=== PATIENT | female | born 1945 | race African-American/Black ===

== ENCOUNTER → 2023-12-19 07:51 | Outpatient (REF) | payer MEDICARE, OTHER, SELFPAY | LOC: HWRAD 07:51 | PROVIDERS: ATTENDING PHYSICIAN Nurse Practitioner Primary Care | DX: M54.50 Low back pain, unspecified (principal); J22 Unspecified acute lower respiratory infection | CPT/HCPCS: 71046; 72110 ==

== ENCOUNTER → 2024-01-22 09:33 | Outpatient (REF) | payer MEDICARE, OTHER, SELFPAY | LOC: MRI 3T 09:33 | PROVIDERS: ATTENDING PHYSICIAN Nurse Practitioner Primary Care | DX: M47.816 Spondylosis without myelopathy or radiculopathy, lumbar region (principal); M54.50 Low back pain, unspecified; M81.0 Age-related osteoporosis without current pathological fracture; M51.360 Other intervertebral disc degeneration, lumbar region with discogenic back pain only | CPT/HCPCS: 77080 ==

== ENCOUNTER → 2024-01-24 08:44 | Outpatient (REF) | payer MEDICARE, OTHER, SELFPAY | LOC: PAVMRI 08:44 | PROVIDERS: ATTENDING PHYSICIAN Nurse Practitioner Primary Care | DX: M54.50 Low back pain, unspecified (principal); M51.360 Other intervertebral disc degeneration, lumbar region with discogenic back pain only; M47.816 Spondylosis without myelopathy or radiculopathy, lumbar region | CPT/HCPCS: 72148 ==

== ENCOUNTER → 2024-02-06 07:50 | Outpatient (REF) | payer MEDICARE, OTHER, SELFPAY | LOC: WDC 07:50 | PROVIDERS: ATTENDING PHYSICIAN Nurse Practitioner Primary Care | DX: Z12.31 Encounter for screening mammogram for malignant neoplasm of breast (principal) | CPT/HCPCS: 77063; 77067 ==

== ENCOUNTER → 2024-04-19 07:20 | Outpatient (REF) | payer MEDICARE, OTHER, SELFPAY | LOC: MRI 07:20 | PROVIDERS: ATTENDING PHYSICIAN Orthopaedic Surgery; FAMILY PHYSICIAN Nurse Practitioner Primary Care | DX: M25.511 Pain in right shoulder (principal) | CPT/HCPCS: 73221 ==

== ENCOUNTER → 2024-08-23 08:19 | Outpatient (REF) | payer MEDICARE, OTHER, SELFPAY | LOC: HWRCS 08:19 | PROVIDERS: ATTENDING PHYSICIAN Nurse Practitioner Primary Care | DX: E11.9 Type 2 diabetes mellitus without complications (principal); R60.0 Localized edema | CPT/HCPCS: 93306 ==

== ENCOUNTER → 2024-10-01 06:37 | Outpatient (REF) | payer MEDICARE, OTHER, SELFPAY ==
[2024-10-01] MEDS: LEXISCAN 0.4 MG IV (08:49)
[2024-10-01] MEDS: AMINOPHYLLINE 75 MG IV (08:52)
== END ==
LOC: RCS 06:37
PROVIDERS: ATTENDING PHYSICIAN Nurse Practitioner Primary Care
DX: E11.9 Type 2 diabetes mellitus without complications (principal); R07.89 Other chest pain
CPT/HCPCS: 78452; 93017; A9500; J2785

== ENCOUNTER → 2024-12-22 06:44 | Outpatient (REF) | payer MEDICARE, OTHER, SELFPAY | LOC: MRI 3T 06:44 | PROVIDERS: ATTENDING PHYSICIAN Specialist; FAMILY PHYSICIAN Nurse Practitioner Primary Care | DX: R26.81 Unsteadiness on feet (principal) | CPT/HCPCS: 70551 ==

== ENCOUNTER 2024-12-27 09:00 | Emergency (ER) | payer MEDICARE, BC, SELFPAY ==
[2024-12-27] VITALS (8 sets, daily range): BP systolic 117–151; BP diastolic 67–88; BMI 33.1
--- NOTE | 2024-12-27 09:16 | ED.GENMED ---
History of Present Illness
<Terence Mancini PA-C - Last Filed: 12/27/24 15:46>
General
Chief Complaint: Chest Pain
Source: patient
Exam Limitations: none
Time Seen by Provider: 12/27/24 09:15
History of Present Illness
History of Present Illness:
79-year-old female with history of hyperlipidemia, hypertension and prediabetes on atorvastatin losartan and metformin presents complaining of intermittent chest comfort upper chest since yesterday. This morning her pain was severe and she
described as a pressure on her chest. She notes at the time my exam the pain is improved. She denies any recent travel or surgery but no leg swelling or calf pain. The pain is not pleuritic. She does occasionally note swelling in her leg that
tends to improve with elevation. No fevers. The daughter that presents with her states she has been coughing slightly. She has seen cardiology in this area she has had an echocardiogram in the recent past.
Past History
<Terence Mancini PA-C - Last Filed: 12/27/24 15:46>
Past History
ED Past Medical History: Cancer, HTN, Hypercholesterolemia, NIDDM and Hypothyroidism
ED Past Surgical History: Orthopedic and Other
Social History
Tobacco: Non-smoker
Alcohol: None
Drug: None
Living: with family
Phy Exam
<LAWRENCE Brice Last Filed: 12/27/24 15:46>
Physical Exam
Physical Exam:
General: Well-developed female with slight increased work of breathing
HEENT normocephalic atraumatic
Heart: Regular rate and rhythm
Lungs: Clear
Abdomen is soft nontender
Extremities: Mild pitting edema bilateral lower extremities
Scores
<Terence Mancini PA-C - Last Filed: 12/27/24 15:46>
Heart Score for Chest Pain Patients
STEMI patient?: No
History: Slightly or Non-Suspicious
ECG: Normal
Age: >/= 65 years
Risk Factors: 1 or 2 Risk Factors
Troponin: </= Normal Limit
Heart Score for Chest Pain Patients: 3
Heart Score Risk: 2.5% MACE over next 6 weeks
Course
Darriuslt;Terence Mancini PA-C - Last Filed: 12/27/24 15:46>
Orders/Labs/Results
Orders:
Orders
12/27/24 09:01
EKG [Electrocardiogram (*1)] Urgent
Reason for Study: Chest Pain
EKG- Treatment ONCE
12/27/24 09:32
CR Chest - 2 Views Urgent
Comment:
Reason For Exam: sob
12/27/24 10:01
US Abdomen Complete/Upper Urgent
Comment:
Reason For Exam: epigastric pain
12/27/24 10:02
Add On- LAB Urgent
Tests Added?: lipase
12/27/24 11:13
Complete Blood Count/With Diff Urgent
Comprehensive Metabolic Panel Urgent
Lipase Urgent
Magnesium Urgent
NT-proBNP Urgent
Troponin I Urgent
12/27/24 14:01
Electrocardiogram (*1) Urgent
Reason for Study: Chest Pain
EKG- Treatment ONCE
12/27/24 14:07
Troponin I Urgent
Abnormal Lab Results
12/27/24
11:13
Hct 36.7 L %
(37.0-47.0)
BUN 18 H mg/dl
(7-17)
Creatinine 0.5 L mg/dL
(0.6-1.0)
Glucose 110 H mg/dl
(70-99)
ALT 59 H U/L
(0-35)
12/27/24 11:13
12/27/24 11:13
Vital Signs
Initial and Last Documented VS:
Initial Vital Signs
Temp Pulse Resp BP Pulse Ox
98.5 F 75 18 127/88 99
12/27/24 09:12 12/27/24 09:12 12/27/24 09:12 12/27/24 09:12 12/27/24 09:12
Last Documented Vital Signs
Temp Pulse Resp BP Pulse Ox
98.5 F 70 22 139/76 98
12/27/24 09:12 12/27/24 14:15 12/27/24 14:15 12/27/24 15:00 12/27/24 15:30
<Eddie Arias MD - Last Filed: 12/27/24 10:02>
Orders/Labs/Results
Orders:
Orders
12/27/24 09:01
EKG [Electrocardiogram (*1)] Urgent
Reason for Study: Chest Pain
EKG- Treatment ONCE
12/27/24 09:32
CR Chest - 2 Views Urgent
Comment:
Reason For Exam: sob
12/27/24 10:01
US Abdomen Complete/Upper Urgent
Comment:
Reason For Exam: epigastric pain
12/27/24 10:02
Add On- LAB Urgent
Tests Added?: lipase
12/27/24 11:13
Complete Blood Count/With Diff Urgent
Comprehensive Metabolic Panel Urgent
Lipase Urgent
Magnesium Urgent
NT-proBNP Urgent
Troponin I Urgent
12/27/24 14:01
Electrocardiogram (*1) Urgent
Reason for Study: Chest Pain
EKG- Treatment ONCE
12/27/24 14:07
Troponin I Urgent
Abnormal Lab Results
12/27/24
11:13
Hct 36.7 L %
(37.0-47.0)
BUN 18 H mg/dl
(7-17)
Creatinine 0.5 L mg/dL
(0.6-1.0)
Glucose 110 H mg/dl
(70-99)
ALT 59 H U/L
(0-35)
12/27/24 11:13
12/27/24 11:13
Vital Signs
Initial and Last Documented VS:
Initial Vital Signs
Temp Pulse Resp BP Pulse Ox
98.5 F 75 18 127/88 99
12/27/24 09:12 12/27/24 09:12 12/27/24 09:12 12/27/24 09:12 12/27/24 09:12
Last Documented Vital Signs
Temp Pulse Resp BP Pulse Ox
98.5 F 70 22 139/76 98
12/27/24 09:12 12/27/24 14:15 12/27/24 14:15 12/27/24 15:00 12/27/24 15:30
<Terence Mancini PA-C - Last Filed: 12/27/24 15:46>
MDM/Problems Addressed
Differential Diagnosis Includes:
Chest pain with shortness of breath with exertion. Consider ACS versus heart failure less likely be PE given normal vital signs and improvement of symptoms.
EKG reviewed
Labs and chest x-ray ordered
<Terence Mancini PA-C - Last Filed: 12/27/24 15:46>
*Pulse Oximetry
SaO2: 99
Oxygen Mode of Delivery: Room air
Patient hypoxic: no
*Critical Care Note
Total Time (30-74mins, 75-104mins- exclusive of procedures): Not Applicable
<Terence Mancini PA-C - Last Filed: 12/27/24 15:46>
Update Note
Update Note:
EKG shows sinus rhythm with occasional PVCs with a rate of 74. No ischemic changes
review of prior records demonstrates an echocardiogram that was performed in August of this year which showed an ejection fraction of 50 to 55% Without any regional wall motion abnormalities. There is no significant valvular disease
Initial and repeat troponins undetectable. Discussed with emergency room attending. Ultrasound was ordered secondary to epigastric tenderness. This was negative. Chest x-ray clear. Patient reexamined looks nontoxic. No indication for admission
will discharge with chest pain follow-up
ED Attending Note
<Terence Mancini PA-C - Last Filed: 12/27/24 15:46>
-
Portions of this chart may have been created with voice recognition software.� Occasional wrong word or��sound alike� substitutions may have occurred due to the inherent limitations of voice recognition software.
<Eddie Arias MD - Last Filed: 12/27/24 10:02>
ED Attending Note
Patient seen and examined by attending physician: Yes
ED Attending Note:
I have seen and evaluated the patient with a [id number] encounter. I have spoken to the advance practicer provider and involved in the medical history, the physical exam, medical decision making.
Evaluation and management service: agree unless noted differently below.
Results interpretation: agree unless noted differently below.
Focused HPI: 79-year-old female with a past medical history of hypertension, hyperlipidemia, diabetes who presents to the emergency room with her daughter for evaluation of chest pain. Patient reports that she has had off-and-on 'sharp bursts' of
chest pain for about 15 years. She has been evaluated for this issue before including a recent nuclear stress test that was reportedly reassuring. She says that today after she finished breakfast she started having more intense chest pain which
she describes as sharp center of the chest radiates towards epigastrium. She says it started around 6:30 or 7 AM and has been constant since then although since arrival in the ER she says intensity seems to be waxing and waning a bit more. She
does report some mild chronic shortness of breath. She denies any nausea or vomiting today but says that yesterday she had some mild nausea. She denies any other acute complaints. She denies any history of prior abdominal surgeries.
Physical exam: Awake and alert not in any distress. Vital signs are all within normal limits. She has no cardiac rubs gallops or murmurs. Her lungs sound clear to auscultation. She has no JVD. She has trace edema in the legs. Her abdomen is
mildly tender in the epigastrium.
Medical Decision Makin-year-old female presents for evaluation of atypical chest pain started after eating breakfast this morning. Vitals and exam as above. Her EKG shows sinus rhythm with no acute ischemia. Will plan to check basic labs,
troponin. Check chest x-ray and upper abdominal ultrasound. Low clinical suspicion for PE (symptoms improving, no tachycardia, no tachypnea, no hypoxia, no signs of DVT)�in my judgment no further workup for this diagnosis indicated.
Discharge Plan
Departure
Patient Disposition: Home (Routine Discharge)
Date of Disposition: 12/27/24
Time of Disposition: 15:45
Patient with high blood pressure during this ER visit?: No
Discharge Problem:
Chest pain
Instructions: Chest Pain DCA Follow Up
Prescriptions:
No Action
sennosides [senna] 8.6 mg Tablet
8.6 mg PO BIDPRN PRN (Reason: constipation)
metformin 500 mg Tablet
500 mg PO TID
acetaminophen [Tylenol] 325 mg Tablet
650 mg PO Q6HPRN PRN (Reason: mild pain)
atorvastatin [Lipitor] 20 mg Tablet
20 mg PO HS
cyanocobalamin (vitamin B-12) 1,000 mcg Tablet
1,000 mcg PO DAILY
docusate sodium [Colace] 100 mg Capsule
100 mg PO DAILY
losartan 100 mg Tablet
100 mg PO DAILY
melatonin 5 mg Tablet
5 mg PO HS PRN (Reason: sleep)
omega [id number] oil [Fish Oil] 1,000 mg (120 mg-180 mg) Capsule
1 cap PO DAILY
Referrals:
Shira Roque CRNP [Family Provider, Internal Medicine]
Activity Restrictions/Additional Instructions:
Please return here if needed otherwise follow-up with cardiology
Interventions
Interventions:
*Risk Screen - Suicide Last Done: 12/27/24 09:12
*General Assessment Last Done: 12/27/24 09:35
*Neglect/Abuse Screening Last Done: 12/27/24 09:35
*ED- Fall Risk Assessment Last Done: 12/27/24 09:35
*ED COVID-19 Vaccine History Last Done: 12/27/24 09:35
ED- Cardiac Assessment Last Done: 12/27/24 09:35
Discharge Date and Time
Print Language: MALTESE
[2024-12-27 11:26] LABS: Hematocrit 36.7 % (37.0-47.0); Hemoglobin 12.5 g/dL (12.0-16.0); Mean Corp Hgb Conc. 34.1 g/dL (33.0-37.0); Mean Corpuscular Volume 85.9 fL (81.0-99.0); Nucleated Red Blood Cells % 0 %; Platelet Count 291 10^3/uL (130-400); Red Cell Dist. Width 13.3 % (11.5-14.5)
[2024-12-27 11:40] LABS: ALT (SGPT) 59 U/L (0-35); AST (SGOT) 36 U/L (14-36); Albumin 4.5 g/dl (3.5-5.0); Alkaline Phosphatase 70 U/L (38-126); Blood Urea Nitrogen 18 mg/dl (7-17); Calcium 9.7 mg/dl (8.4-10.2); Carbon Dioxide 24 mmol/L (22-30); Chloride 105 mmol/L (98-107); Estimated Creatinine Clearance 83 ml/min; Glucose 110 mg/dl (70-99); Lipase 249 U/L (23-300); Magnesium 2.1 mg/dl (1.6-2.3); Potassium 4.6 mmol/L (3.5-5.1); Sodium 137 mmol/L (135-145); Total Protein 7.2 g/dl (6.3-8.2); eGFR > 60.00
[2024-12-27 11:53] LABS: Troponin I < 0.012 ng/ml
--- NOTE | 2024-12-27 14:00 | EDRN ---
Pt brought water after repositioning her for comfort and just complained of a sharp chest pain. ED PCT will get a repeat EKG at this time.
[2024-12-27 15:05] LABS: Troponin I < 0.012 ng/ml
== END 2024-12-27 15:58 | disposition home or self-care (01) ==
LOC: EMR 09:00
PROVIDERS: Physician Assistant; EMERGENCY PHYSICIAN Emergency Medicine; FAMILY PHYSICIAN Nurse Practitioner Primary Care
DX: R07.89 Other chest pain (principal); E78.00 Pure hypercholesterolemia, unspecified; I10 Essential (primary) hypertension; E11.9 Type 2 diabetes mellitus without complications; E03.9 Hypothyroidism, unspecified; Z79.84 Long term (current) use of oral hypoglycemic drugs
CPT/HCPCS: 99284; 71046; 76700; 80053; 83690; 83735; 83880; 84484; 85025; 93005